=== PATIENT | female | born 1960 | race Caucasian/White ===

== ENCOUNTER 2020-10-14 13:52 | Emergency (ER) | payer MEDICAID ==
[~2020-10-14] VITALS: Ht 162.6 cm; Wt 56.0 kg
[2020-10-14 16:09] VITALS: BP 148/70
== END 2020-10-14 16:09 | disposition home or self-care (01) ==
LOC: ER 13:52
DX: S20.212A Contusion of left front wall of thorax, initial encounter (principal); I10 Essential (primary) hypertension; Z88.0 Allergy status to penicillin; Z88.8 Allergy status to other drugs, medicaments and biological substances; W07.XXXA Fall from chair, initial encounter; Y93.89 Activity, other specified; Y92.018 Other place in single-family (private) house as the place of occurrence of the external cause
CPT/HCPCS: 71101; 99283

== ENCOUNTER 2025-02-09 11:24 | Emergency (ER) | payer MEDICAID, OTHER ==
[~2025-02-09] VITALS: Ht 162.6 cm; Wt 65.0 kg
[2025-02-09 11:26] VITALS: O2SAT 96
[2025-02-09 11:57] LABS: BASOPHILS % 0.5 % (0.0-2.0); EOSINOPHILS % 5.6 % (0.0-5.0); HEMATOCRIT. 46.1 % (36.0-48.0); HEMOGLOBIN. 15.9 g/dL (12.0-16.0); LYMPHOCYTES % 16.8 % (20.0-50.0); MEAN PLATELET VOLUME 8.3 fl (7.4-10.4); MONOCYTES % 4.6 % (2.0-8.0); NEUTROPHILS % 72.5 % (40.0-76.0); PLATELET 336 x1000/uL (130-400); RED BLOOD CELL COUNT 5.05 mill/uL (4.2-5.4); RED CELL DISTRIBUTION WIDTH 12.5 % (11.6-14.6)
[2025-02-09 12:00] VITALS: TEMP 37
[2025-02-09 12:09] LABS: CREATININE 0.8 mg/dL (0.6-1.0); UREA NITROGEN BLOOD 6 mg/dL (9-23)
[2025-02-09 12:10] LABS: TROPONIN I HIGH SENSITIVITY 5 ng/L (3.0-34)
[2025-02-09] MEDS: METHYLPREDNISOLONE SOD SUCC 125MG/2ML (ACT-O-VIAL) IV ONE (12:30)
[2025-02-09] MEDS: MAGNESIUM 2 G PREMIX 50 ML IV ONE (12:30)
[2025-02-09] MEDS: IPRATROPIUM BROMIDE (0.02%) 0.5MG/2.5ML NEB HHN SCH (12:42)
[2025-02-09] MEDS: ALBUTEROL (0.083%) 2.5MG/3ML NEB HHN SCH (12:42)
[2025-02-09 12:45] VITALS: PULSE 78; RESP 16
[2025-02-09] MEDS ORDERED: KCL 10MEQ/50ML PREMIX 50 ML IV SCH (12:45)
[2025-02-09 14:27] VITALS: BP 156/78; PULSE 92; RESP 17; O2SAT 94
[2025-02-09] MEDS ORDERED: ONDANSETRON HCL 4MG/2ML INJ IV PRN (16:30)
[2025-02-09] MEDS ORDERED: CLONIDINE 0.1MG TABLET PO PRN (16:30)
[2025-02-09] MEDS ORDERED: ACETAMINOPHEN 325MG TABLET PO PRN ×2 (16:30)
[2025-02-09] MEDS ORDERED: IPRATROPIUM/ALBUTEROL 0.5-3(2.5)MG/3ML NEB HHN SCH (16:30)
[2025-02-09] MEDS ORDERED: DOCUSATE SODIUM 100MG CAPSULE PO PRN (16:30)
== END 2025-02-09 14:20 | disposition short-term general hospital (02) ==
LOC: ER 11:24 → CMPBEDREQ 02-10 08:03
DX: J44.1 Chronic obstructive pulmonary disease with (acute) exacerbation (principal); E87.6 Hypokalemia; I11.9 Hypertensive heart disease without heart failure; Z88.0 Allergy status to penicillin
CPT/HCPCS: 80048; 85025; 84484; 36415; 71045; 94640; 93005; 96365; 96366; 96375; 99291; J3475; J2919; Z7610; 94070; 94664